=== PATIENT | male | born 1935 | race Caucasian/White ===

== ENCOUNTER 2019-09-06 15:55 | Outpatient (CLI) | payer MEDICARE, SELFPAY ==
[2019-09-06 16:49] LABS: Blood Urea Nitrogen 39 mg/dL (9-20); Calcium 8.9 mg/dL (8.4-10.2); Carbon Dioxide 30 mmol/L (22-30); Chloride 97 mmol/L (98-107); Estimated Glomerular Filt Rate 58; Glucose 93 mg/dL (75-110); Potassium 3.7 mmol/L (3.4-5.0); Sodium 133 mmol/L (137-145)
== END 2019-09-06 15:56 | disposition home or self-care (01) ==
PROVIDERS: PCP Family Medicine; Visit Provider Physician Assistant
DX: I10 Essential (primary) hypertension (principal)
CPT/HCPCS: 36415; 80048

== ENCOUNTER 2019-10-10 10:56 | Outpatient (CLI) | payer MEDICARE, SELFPAY ==
[2019-10-10 11:58] LABS: Blood Urea Nitrogen 31 mg/dL (9-20); Calcium 8.1 mg/dL (8.4-10.2); Carbon Dioxide 34 mmol/L (22-30); Chloride 104 mmol/L (98-107); Estimated Glomerular Filt Rate 58; Glucose 127 mg/dL (75-110); Sodium 139 mmol/L (137-145)
== END 2019-10-10 10:57 | disposition home or self-care (01) ==
PROVIDERS: PCP Family Medicine; Visit Provider Physician Assistant
DX: E87.1 Hypo-osmolality and hyponatremia (principal); N28.9 Disorder of kidney and ureter, unspecified
CPT/HCPCS: 36415; 80048

== ENCOUNTER 2019-10-15 16:10 | Outpatient (CLI) | payer MEDICARE, SELFPAY ==
[2019-10-15 16:44] LABS: Blood Urea Nitrogen 36 mg/dL (9-20); Calcium 8.2 mg/dL (8.4-10.2); Carbon Dioxide 34 mmol/L (22-30); Chloride 103 mmol/L (98-107); Estimated Glomerular Filt Rate 48; Glucose 92 mg/dL (75-110); Potassium 3.8 mmol/L (3.4-5.0); Sodium 136 mmol/L (137-145)
[2019-10-15 16:52] LABS: NT Pro B Type Natriuretic Pept 2640 PG/ML (5-100)
== END 2019-10-15 16:11 | disposition home or self-care (01) ==
PROVIDERS: PCP Family Medicine; Visit Provider Physician Assistant
DX: I50.9 Heart failure, unspecified (principal); I10 Essential (primary) hypertension; R60.0 Localized edema
CPT/HCPCS: 36415; 80048; 83880

== ENCOUNTER 2019-10-22 15:01 | Outpatient (CLI) | payer MEDICARE, SELFPAY ==
--- NOTE | ~2019-10-22 | US_ITS ---
EXAMINATION: US venous doppler [facility] DATE: 10/22/2019 15:50 INDICATION: Lower limb edema TECHNIQUE: Chan scale images without and with compression and Doppler images of the bilateral lower e xtremity veins were obtained. COMPARISON: 08/21/2019. FINDINGS: There is bilateral lower limb edema. The right common femoral vein, profunda femoral vein, femoral vein, popliteal vein, peroneal trunk, p osterior tibial veins, and greater saphenous vein are patent. The left common femoral vein, profunda femoral vein, femoral vein, popliteal vein, peroneal trunk, po sterior tibial veins, and greater saphenous vein are patent. IMPRESSION: 1. Patent bilateral lower extremity veins. No evidence of deep venous thrombosis. Reviewed, dictated and finalized at location A. IMPRESSION: 1. Patent bilateral lower extremity veins. No evidence of deep venous thrombosi s.
== END 2019-10-22 15:02 | disposition home or self-care (01) ==
PROVIDERS: PCP Family Medicine; Visit Provider Family Medicine
DX: R60.0 Localized edema (principal); R91.8 Other nonspecific abnormal finding of lung field
CPT/HCPCS: 93970

== ENCOUNTER 2019-11-11 07:46 | Outpatient (CLI) | payer MEDICARE, SELFPAY ==
--- NOTE | 2019-11-11 08:11 | ECHO_ITS ---
Patient Info Name: Nj Vasquez Age: 84 years : 1935 Gender: Male Ht: 65 in Wt: 160 lbs BSA: 1.84 m2 HR: 80 bpm BP: 137 / 75 mmHg Technical Quality: Fair Exam Date: 11/11/2019 8:26 AM Exam Location: [facility] Pulmonary Patient Status: Outpatient Admit Date: 11/11/2019 Staff Ordering Physician: Charles Apple DO [employer] Supervisor: Jory Schmidt RDCS Attending Provider: Charles Apple DO Referring Physician: Zechariah BURGER; Exam Type: CA echo doppler color flow Study Info Indications I10 - Essential (primary) hypertension R06.00 - Dyspnea, unspecified Complete two-dimensional, color flow and Doppler transthoracic echocardiogram is performed. Summary 1. Left ventricular chamber dimension is normal. 2. Ventricular septum is sigmoid shaped. 3. Left ventricular systolic function is normal, estimated at 60-65%. 4. The left ventricular diastolic function is grade I diastolic dysfunction. 5. E/e' 12 is mildly elevated. 6. 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 It is non-obstructive. Consider AHNNA if clinically indicated. 7. There is moderate aortic valve sclerosis. 8. There is trace aortic valve regurgitation. 9. The mitral valve has mildly calcified annulus. 10. There is mild mitral valve regurgitation. 11. No pulmonary hypertension, estimated pulmonary arterial systolic pressure is 26 mmHg. 12. The aortic root size at the sinus of Valsalva is mildly dilated at 4.4 cm. Left Ventricle E/e' 12 is mildly elevated. Ventricular septum is sigmoid shaped. Left ventricular chamber dimension is normal. Left ventricular systolic function is normal, estimated at 60-65%. The left ventricular diastolic function is grade I diastolic dysfunction. Right Ventricle Right ventricular chamber dimension is normal. Right ventricular systolic function is normal. 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 It is non-obstructive. Consider HANNA if clinically indicated. Left atrial chamber dimension is normal. Right Atria Right atrial chamber dimension is normal. Aortic Valve The aortic valve is trileaflet. There is moderate aortic valve sclerosis. There is no aortic valve stenosis. There is trace aortic valve regurgitation. Pulmonic Valve There is no pulmonic regurgitation. Mitral Valve The mitral valve has mildly calcified annulus. There is no mitral valve stenosis. There is mild mitral valve regurgitation. Tricuspid Valve There is no tricuspid valve regurgitation. No pulmonary hypertension, estimated pulmonary arterial systolic pressure is 26 mmHg. Pericardium/Pleural There is no pericardial effusion. Inferior Vena Cava Normal inferior vena cava with >50% collapse upon inspiration consistent with normal right atrial pressure, 5 mmHg. Aorta The aortic root size at the sinus of Valsalva is mildly dilated at 4.4 cm. Left Ventricular Outflow Tract Name Value Normal LVOT 2D LVOT Diameter 2.1 cm LVOT Doppler --------
[2019-11-11 10:31] LABS: Blood Urea Nitrogen 34 mg/dL (9-20); Calcium 8.1 mg/dL (8.4-10.2); Carbon Dioxide 30 mmol/L (22-30); Chloride 102 mmol/L (98-107); Estimated Glomerular Filt Rate 48; Glucose 86 mg/dL (75-110); Potassium 3.6 mmol/L (3.4-5.0); Sodium 133 mmol/L (137-145)
[2019-11-11 10:40] LABS: NT Pro B Type Natriuretic Pept 4800 PG/ML (5-100)
== END 2019-11-11 07:47 | disposition home or self-care (01) ==
PROVIDERS: Physician Assistant; PCP Family Medicine; Visit Provider Internal Medicine Cardiovascular Disease
DX: I10 Essential (primary) hypertension (principal); I50.9 Heart failure, unspecified; R06.09 Other forms of dyspnea; R60.0 Localized edema; I08.3 Combined rheumatic disorders of mitral, aortic and tricuspid valves
CPT/HCPCS: 36415; 80048; 83880; 93306

== ENCOUNTER 2019-12-13 14:20 | Outpatient (CLI) | payer MEDICARE, SELFPAY ==
[2019-12-13 15:51] LABS: NT Pro B Type Natriuretic Pept 7040 PG/ML (5-100)
== END 2019-12-13 14:21 | disposition home or self-care (01) ==
PROVIDERS: PCP Family Medicine; Visit Provider Physician Assistant
DX: I50.9 Heart failure, unspecified (principal)
CPT/HCPCS: 36415; 83880

== ENCOUNTER 2019-12-27 12:29 | Outpatient (CLI) | payer MEDICARE, SELFPAY ==
[2019-12-27 13:07] LABS: Blood Urea Nitrogen 58 mg/dL (9-20); Calcium 8.1 mg/dL (8.4-10.2); Carbon Dioxide 30 mmol/L (22-30); Chloride 101 mmol/L (98-107); Estimated Glomerular Filt Rate 48; Glucose 96 mg/dL (75-110); Magnesium 2.1 mg/dL (1.6-2.3); Sodium 134 mmol/L (137-145)
[2019-12-27 13:17] LABS: NT Pro B Type Natriuretic Pept 7340 PG/ML (5-100)
== END 2019-12-27 12:30 | disposition home or self-care (01) ==
PROVIDERS: PCP Family Medicine; Visit Provider Internal Medicine Cardiovascular Disease
DX: I51.89 Other ill-defined heart diseases (principal)
CPT/HCPCS: 36415; 80048; 83735; 83880

== ENCOUNTER 2019-12-27 16:38 | Inpatient (IN) | payer MEDICARE, SELFPAY ==
[2019-12-27] VITALS (11 sets, daily range): BP systolic 159–210; BP diastolic 67–113; PULSE 72–95; RESP 13–20; TEMP 36.1–36.8; O2SAT 97–100; BMI 21.8; BMI 23.1
--- NOTE | ~2019-12-27 | XR_ITS ---
EXAMINATION: XR chest 2V DATE: 12/27/2019 17:33 INDICATION: Swelling of the extremities TECHNIQUE: AP and lateral views of the chest are obtained. COMPARISON: 05/18/2019 FINDINGS: Airspace opacities in the left lung apex persist with slight worsening. There is an unchang ed masslike opacity in the right lung apex. There are small pleural effusions, right greater than lef t. No pneumothorax is identified. The cardiomediastinal silhouette is normal. There is moderate thora cic spondylosis. Suture anchors are noted in the right humeral head. IMPRESSION: 1. Chronic left upper lobe airspace opacity with interval worsening, consistent with superimposed pne umonia. 2. Stable right upper lobe mass which may be infectious or malignant. 3. Small pleural effusions, right greater than left. Reviewed, dictated and finalized at location A. IMPRESSION: 1. Chronic left upper lobe airspace opacity with interval worsening, consistent with superimposed pneumonia. 2. Stable right upper lobe mass which may be infectious or malignant. 3. Small pleural effusions, right greater than left.
--- NOTE | ~2019-12-27 | US_ITS ---
US venous doppler UE RT DATE: 12/28/2019 10:19 INDICATION: Right upper extremity edema TECHNIQUE: Real-time and color flow imaging imaging and Doppler analysis of the right upper extremity veins COMPARISON: None FINDINGS: Flow is demonstrated in the right internal jugular, subclavian, axillary, brachial, basilic , cephalic, radial and ulnar veins, with normal compression where applicable. IMPRESSION: Negative examination; no evidence of right upper extremity venous thrombosis Reviewed, dictated and finalized at Location A. Reviewed, dictated and finalized at location A. IMPRESSION: Negative examination; no evidence of right upper extremity venous t hrombosis
--- NOTE | 2019-12-27 16:44 | ECG_ITS ---
Measurements Intervals [place] Rate: 90 P: 79 [place]: 141 QRS: -55 QRSD: 149 T: 65 QT: 364 QTc: 447 Interpretive Statements SINUS RHYTHM FREQUENT ATRIAL PREMATURE COMPLEXES RIGHT BUNDLE BRANCH BLOCK LEFT ANTERIOR FASCICULAR BLOCK BASELINE ARTIFACT- I, II, III, AVR, AVL, AVF ABNORMAL ECG Electronically Signed On 12-27-2019 17:30:34 CDT by Charles Apple D.O.
[2019-12-27 17:09] LABS: Basophils Percent Auto 0.4 % (0.2-1.2); Eosinophils Percent Auto 0.3 % (0-4.4); Hematocrit 31.1 % (42.0-52.0); Hemoglobin 9.9 g/dL (14.0-18.0); Immature Granulocyte Absolute 0.07 K/mm3 (0.00-0.031); Immature Granulocyte Percent A 0.6 % (0-0.5); Lymphocytes Absolute Auto 1.23 K/mm3 (0.9-3.2); Lymphocytes Percent Auto 11.3 % (18.3-44.2); Mean Corpuscular HGB Conc 31.8 g/dl (32-36); Mean Corpuscular Hemoglobin 27.7 pg (26-34); Mean Corpuscular Volume 86.9 fl (80-100); Mean Platelet Volume 9.9 fl (7.4-10.4); Monocytes Absolute Auto 0.7 K/mm3 (0.1-0.6); Monocytes Percent Auto 6.1 % (2.6-8.5); Neutrophils Absolute Auto 8.9 K/mm3 (1.3-6.7); Neutrophils Percent Auto 81.3 % (45.5-73.1); Platelet Count Result 242 k/mm3 (150-375); Red Blood Count 3.58 M/mm3 (4.6-6.20); Red Cell Distribution Width 15.9 % (11.5-14.5); White Blood Count 10.9 K/mm3 (4.5-10.0)
[2019-12-27 17:19] LABS: INR 0.9; Prothrombin Time 11.8 Seconds (11.1-14.7)
[2019-12-27 17:20] LABS: Partial Thromboplastin Time 22.3 SECONDS (22.3-36.8)
[2019-12-27 17:21] LABS: Blood Urea Nitrogen 60 mg/dL (9-20); Carbon Dioxide 29 mmol/L (22-30); Chloride 104 mmol/L (98-107); Estimated CRCL calculation 33 ml/min; Estimated Glomerular Filt Rate 48; Glucose 125 mg/dL (75-110); Potassium 3.8 mmol/L (3.4-5.0); Sodium 135 mmol/L (137-145)
[2019-12-27 17:38] LABS: NT Pro B Type Natriuretic Pept 6750 PG/ML (5-100); Troponin I 0.047 ng/mL (0.000-0.034)
--- NOTE | 2019-12-27 17:39 | ED.GENADULT ---
HPI - General Adult General Chief complaint: Unspecified Stated complaint: seeping edema Time Seen by Provider: 12/27/19 17:26 Source: RN notes reviewed History of Present Illness HPI narrative: Patient presents emergency department from home for lower extremity edema. History is per patient and family who noticed increasing edema over the past month worse in the past several days with weeping edema the bilateral lower extremities. Per the family patient is been seen Dr. Issa as well as Dr. napoles for the symptoms and had outpatient labs done today. Patient does have a history of lung masses for which she has elected not to have treatment at this time. The patient denies any fevers or chills chest pain shortness of breath abdominal pain or any other symptom patient has been taking Lasix as prescribed Related Data Home Medications Medication Instructions Recorded Confirmed lisinopril 20 mg tablet 20 mg PO DAILY 12/13/19 12/17/19 Allergies Allergy/AdvReac Type Severity Reaction Status Date / Time No Known Allergies Allergy Verified 12/27/19 17:04 Review of Systems Review of Systems: Narrative: Gen.: Denies fevers or chills Eyes: Denies eye pain or visual change ENT: Denies congestion Respiratory: Denies shortness of breath or cough ports history of lung mass CV: Denies chest pain or palpitations reports lower extremity and right upper extremity edema GI: Denies abdominal pain nausea, emesis or diarrhea Musculoskeletal: Denies back pain or muscle pain Neuro: Denies numbness, tingling, weakness or focal weakness Skin: Denies rash Except as documented, all other systems reviewed and negative FORMERLY [facility] Past Medical History Medical History Anxiety Bilateral lower extremity edema Chronic shortness of breath COPD (chronic obstructive pulmonary disease) COPD (chronic obstructive pulmonary disease) Essential hypertension IFG (impaired fasting glucose) Lung mass Osteoarthritis Thoracic aortic aneurysm without rupture Social History Social History Smoking status: Current some day smoker Tobacco type: cigarettes Second hand tobacco smoke exposure: No Alcohol intake: never Substance use: never Substance use type: does not use Gender identity (if verbalized by the patient): Male Exam Narrative: Exam Narrative: APPEARANCE: No acute distress, nontoxic, resting in bed EYES: EOMI HEENT: Normocephalic, atraumatic, OMM RESPIRATORY: No respiratory distress Clear to auscultation bilaterally with no rhonchi wheezing or rales. CARDIOVASCULAR: Regular rate and rhythm without murmurs rubs or gallops. ABDOMINAL: Soft, nontender, nondistended, no rebound or guarding MUSCULOSKELETAl: Moves all extremities. No clubbing, cyanosis 4+ edema the bilateral lower extremities and 3+ edema the right upper extremity 2+ edema in the left upper extremity, bilateral radial pulse 2+ bilateral dorsalis pedis pulse 2+ NEURO: Awake and alert. Following commands, speech normal, no focal deficits SKIN:: Warm, dry. No rashes lesions or abrasions PSYCHIATRIC: Normal affect/mood, Course Course Emergency Course: Reviewed chest x-ray patient has known history of lung mass consistent with lung cancer and not elected treatment he denies any shortness of breath fever cough doubt pneumonia at this time and suspect worsening mass Discussed with Dr. kirk presentation work-up. Request patient receive Lasix 40 mg x 1 now he agrees with consult and states he will write further Lasix orders after evaluation by himself Discussed with NIKOLAI Osorio for Dr Alvarez presentation work-up. Agrees with admission at this time Discussed with patient and family results of workup and diagnosis. Discussed need for admission. Patient and family understand and agree to current treatment plan Vital Signs Vital signs: Vital Signs Temperature 98.3 F 12/27/19 16:41 Pul
[2019-12-27] MEDS: FUROSEMIDE INJ 40 MG/4 ML VIAL IV PUSH (18:37)
[2019-12-27] MEDS: ASPIRIN 81 MG CHEWABLE TABLET 324 MG PO (18:38)
--- NOTE | 2019-12-27 20:55 | ADMIMU ---
This patient, Nj Vasquez, was admitted to IMU status, and placed in IMU Room 204-01. Patient/family oriented to hospital policies and general routines including ID bracelet, bed and alarms, visiting hours, pain management, procedures, bathroom and other care routines, personal items, smoking policy, room service/diet, and visiting hours. Valuables list has been completed. Information on how to activate the Rapid Response Team has been discussed. Patient/Family are encouraged to report perceived risks to care and to ask questions if they do not understand what they are told or what they should do.
--- NOTE | 2019-12-27 21:44 | PM.IMHP ---
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 The patient is known to live at home with his daughter and he was brought to the hospital secondary to worsening right upper extremity swelling and facial edema. The patient has been seeing both Dr. Issa and Dr. Mar recently. Cardiology, Dr. Mar insisted that the patient be admitted to our hospital [facility] for IV diuretic therapy. The patient was treated with IV lasix and admitted to IMU tonight. The patient is only oriented to himself tonight and complains of worsening right upper extremity swelling. He denies any fever, chills, cough, sore throat, headache, chest pain, abdominal pain, dysuria, nausea, vomiting, or rectal bleeding. I spoke with his daughter on the phone [facility] and she related that she was told that her father is likely not a good candidate for treatment of his lung tumors. She is interested in learning more about possible options to treat her father's SVC syndrome. She reports that he has had more frequent falls recently, including falling just 2 days ago. Review of Systems Review of Systems: All systems reviewed & are unremarkable except as noted in HPI and below PMFSH Past Medical History Medical History Anxiety Bilateral lower extremity edema Chronic shortness of breath COPD (chronic obstructive pulmonary disease) COPD (chronic obstructive pulmonary disease) Essential hypertension IFG (impaired fasting glucose) Lung mass Osteoarthritis Thoracic aortic aneurysm without rupture Surgical History Surgical History History of orthopedic surgery Family History Family History Mother Family history of malignant neoplasm Hypertension Father Family history of coronary artery disease Acute myocardial infarction Cerebrovascular accident Congestive heart failure Hypertension Sibling Acute myocardial infarction History of blood clots Cerebrovascular accident Congestive heart failure Hypertension Other Family history of arthritis Social History Social History Smoking status: Heavy tobacco smoker Tobacco type: cigarettes Second hand tobacco smoke exposure: Yes Additional smoking assessment comments: smoking decreased because he cant breathe Alcohol intake: former Substance use: never Substance use type: does not use Gender identity (if verbalized by the patient): Male Spiritual care concerns: No Meds Home Medications and Allergies Home Medications Medication Instructions Recorded Confirmed Type levalbuterol HCl 0.63 mg/3 mL 0.63 mg INHALATION Q8H #36 ml 11/11/19 12/27/19 Rx solution for nebulization levalbuterol tartrate 45 2 inh INHALATION Q6H #15 gm 11/11/19 12/27/19 Rx mcg/actuation aerosol inhaler alprazolam 0.5 mg tablet 0.5 mg PO QID PRN #120 tablet 12/04/19 12/27/19 Rx fluticasone fur. 100 mcg-umeclid 1 inhalation INHALATION Q24H 30 12/13/19 12/27/19 Rx 62.5 mcg-vilant 25 mcg Days #60 each inhalat.powder lisinopril 20 mg tablet 20 mg PO DAILY 12/13/19 12/27/19 History furosemide 40 mg tablet 80 mg PO DAILY #90 tablet 12/17/19 12/27/19 Rx potassium chloride 20 mEq 20 meq PO DAILY #90 tablet 12/17/19 12/27/19 Rx tablet,extended release spironolactone 25 mg tablet 25 mg PO DAILY #90 tablet 12/17/19 12/27/19 Rx tramadol 50 mg tablet 50 mg PO Q6H PRN #90 tablet 12/25/19 12/27/19 Rx Allergies Allergy/AdvReac Type Severity Reaction Status Date / Time No Known Allergies Allergy Verified 12/27/19 17:04 Vital Signs Vital Signs - 24 hr 12/27/19 16:41 12/27/19 16:53 12/27/19 18:38 Temperatur
[2019-12-27] MEDS: hydrALAZINE HCL 20 MG/ML VIAL 10 MG IV PUSH (22:31)
[2019-12-28] VITALS (22 sets, daily range): BP systolic 137–169; BP diastolic 77–93; PULSE 68–105; RESP 18–24; TEMP 35.9–36.4; O2SAT 97–100
[2019-12-28 01:18] LABS: Troponin I 0.051 ng/mL (0.000-0.034)
[2019-12-28 04:39] LABS: Basophils Absolute Auto 0.1 K/mm3 (0.0-0.1); Basophils Percent Auto 0.4 % (0.2-1.2); Eosinophils Percent Auto 0.2 % (0-4.4); Hematocrit 31.1 % (42.0-52.0); Immature Granulocyte Absolute 0.05 K/mm3 (0.00-0.031); Immature Granulocyte Percent A 0.4 % (0-0.5); Lymphocytes Absolute Auto 1.29 K/mm3 (0.9-3.2); Lymphocytes Percent Auto 10.8 % (18.3-44.2); Mean Corpuscular HGB Conc 32.2 g/dl (32-36); Mean Corpuscular Hemoglobin 27.5 pg (26-34); Mean Corpuscular Volume 85.7 fl (80-100); Mean Platelet Volume 9.9 fl (7.4-10.4); Monocytes Absolute Auto 0.7 K/mm3 (0.1-0.6); Neutrophils Absolute Auto 9.9 K/mm3 (1.3-6.7); Neutrophils Percent Auto 82.2 % (45.5-73.1); Platelet Count Result 250 k/mm3 (150-375); Red Blood Count 3.63 M/mm3 (4.6-6.20); Red Cell Distribution Width 15.9 % (11.5-14.5)
[2019-12-28 04:52] LABS: Blood Urea Nitrogen 56 mg/dL (9-20); Calcium 8.4 mg/dL (8.4-10.2); Carbon Dioxide 31 mmol/L (22-30); Chloride 103 mmol/L (98-107); Estimated CRCL calculation 30 ml/min; Estimated Glomerular Filt Rate 44; Glucose 92 mg/dL (75-110); Potassium 3.6 mmol/L (3.4-5.0); Sodium 134 mmol/L (137-145)
[2019-12-28 05:18] LABS: Troponin I 0.049 ng/mL (0.000-0.034)
[2019-12-28] MEDS: LEVALBUTEROL NEB 1.25 MG/3 ML 0.63 MG INHALATION ×2 (08:22→13:30)
[2019-12-28] MEDS: FUROSEMIDE INJ 40 MG/4 ML VIAL IV PUSH ×2 (08:35→17:28)
--- NOTE | 2019-12-28 08:53 | PM.CNCAR ---
Assessment and Plan Assessment and plan (1) SVC syndrome: Code(s): I87.1 - Compression of vein Status: Acute Assessment and Plan: Obtain venous duplex of RUE to make sure there is no thrombus. Discussed that it could be related to SVC syndrome from lung mass and he may need treatment for that. His daughter had told me she did not think he was strong enough for treatment. (2) Elevated troponin: Code(s): R79.89 - Other specified abnormal findings of blood chemistry Status: Acute Assessment and Plan: Remained flat and mild at .047 to .051 and trending down. Doubt ACS. Probably related to fluid overload and diastolic heart failure. (3) Diastolic dysfunction: Code(s): I51.89 - Other ill-defined heart diseases Status: Acute Assessment and Plan: Increased Spironolactone 50 mg daily and continue Lasix 40 mg IV BID. Monitor electrolytes. NTproBNP improved to 6,750 from 7,300. (4) Smoking: Code(s): F17.200 - Nicotine dependence, unspecified, uncomplicated Status: Acute Assessment and Plan: Counseled regarding smoking cessation. (5) CHOU (dyspnea on exertion): Code(s): R06.09 - Other forms of dyspnea Status: Acute (6) Lung mass: Code(s): R91.8 - Other nonspecific abnormal finding of lung field Status: Acute (7) Bilateral lower extremity edema: Code(s): R60.0 - Localized edema Status: Acute (8) Thoracic aortic aneurysm without rupture: Code(s): I71.2 - Thoracic aortic aneurysm, without rupture Status: Acute (9) Essential hypertension: Code(s): I10 - Essential (primary) hypertension Status: Chronic (10) COPD (chronic obstructive pulmonary disease): Qualifiers: COPD type: unspecified COPD Qualified Code(s): J44.9 - Chronic obstructive pulmonary disease, unspecified Code(s): J44.9 - Chronic obstructive pulmonary disease, unspecified Status: Chronic (11) PAT (paroxysmal atrial tachycardia): Code(s): I47.1 - Supraventricular tachycardia Status: Acute Assessment and Plan: Start Metoprolol Tartate 25 mg BID to suppress PAC's and decrease episodes of PAT. History of Present Illness History of Present Illness Consult date/time: 12/28/19 08:53 Reason for consult: Edema 84 yr old man who is my regular cardiology patient who has a history of COPD, smoking, hypertension, thoracic aortic aneurysm, CKD stage III, lung masses who presented yesteday to ER due to worsening edema of RUE that started to weep. He also has intermittent facial edema and some mild woody edema of both legs. Currently his right hand has no edema which has resolved compared to in the office when it was severe. He still has edema of RUE. Reports smoking 1 ppd. He is chronically limited at walking minimal distance due to CHOU. Denies chest pain, orthopnea, PND, palpitations, dizziness. On telemetry he gallego short runs of atrial tachycardia at about 120-130 bpm. Cardiovascular studies: 11/11/19 Echo: EF 60-65%, grade I diastolic dysfunction (E/e' 12), 1.6 cm x 1.1 cm circumferential mass attached to superior left atrial wall s/o atrial myxoma that is non-obstructive, trace AI, mild MR, Ao root 4.4 cm. 11/01/19 EKG: Sinus rhythm, RBBB, LAFB. 05/18/19 EKG: Sinus rhythm, RBBB, LAFB. 10/22/19 Venous duplex: No DVT of both legs. 08/21/19 CTA chest: No pulm embolism. Enlarging fluid filled cavitary mass 5.6 x4.2 cmin right apex of lung, likely infectious but need to r/o malignancy. Consider CT guided biopsy. Pulmonary nodules. 4.2 cm ascending aortic aneurysm. Reason For Visit: CHF, Elevated Troponin Review of Systems Constitutional: Constitutional: Reports as per HPI and Denies chills Cardiovascular: Cardiovascular: Reports as per HPI, Denies chest pain, Reports leg edema and Denies lightheadedness Respiratory: Respiratory: Reports as per HPI and Reports dyspnea on exertion Gastrointestinal:
[2019-12-28] MEDS: METOPROLOL TARTRATE 25 MG TABLET PO ×2 (10:29→20:21)
[2019-12-28] MEDS: TRAMADOL HCL 50 MG TABLET PO ×2 (10:30→17:27)
[2019-12-28] MEDS: SPIRONOLACTONE 50 MG TABLET PO (10:30)
[2019-12-28] MEDS: lisinopriL 20 MG TABLET PO (10:31)
[2019-12-28] MEDS: ALPRAZOLAM 0.5 MG TABLET PO ×2 (14:27→20:21)
[2019-12-28] MEDS: ACETAMINOPHEN 325 MG TABLET 650 MG PO (14:28)
--- NOTE | 2019-12-28 15:11 | PM.IMPN ---
Progress Note: A&P Assessment and Plan (1) SVC syndrome: Code(s): I87.1 - Compression of vein Status: Acute Assessment and Plan: Venous Doppler today showed no DVT.. Only treatment would be radiation doubt that oncologist would proceed with such without tissue diagnosis. Continue to treat symptomatically at present time possible and steroids (2) Lung mass: Code(s): R91.8 - Other nonspecific abnormal finding of lung field Status: Acute Assessment and Plan: Apparently no tissue diagnosis is ever been made. Given his age, dementia, and performance status he is not a candidate for any treatment (3) Elevated troponin: Code(s): R79.89 - Other specified abnormal findings of blood chemistry Status: Acute Assessment and Plan: . No chest pain tonight. trended troponin. Are flat and low suggestive of no acute ischemic event (4) Chronic anemia: Code(s): D64.9 - Anemia, unspecified Status: Chronic Assessment and Plan: Likely secondary to anemia of chronic disease. Monitor H/H. (5) Essential hypertension: Code(s): I10 - Essential (primary) hypertension Status: Chronic Assessment and Plan: elevated. Monitor blood pressure. Continue home meds. PRN hydralazine w/ parameters. (6) COPD (chronic obstructive pulmonary disease): Qualifiers: COPD type: unspecified COPD Qualified Code(s): J44.9 - Chronic obstructive pulmonary disease, unspecified Code(s): J44.9 - Chronic obstructive pulmonary disease, unspecified Status: Chronic Assessment and Plan: Continue bronchodilators. (7) Chronic renal failure, stage 3 (moderate): Code(s): N18.3 - Chronic kidney disease, stage 3 (moderate) Status: Acute Assessment and Plan: Creatinine has been elevated to 1.4 the past 2 months. Probably his new norm. Larger while here (8) DVT prophylaxis: Code(s): Z29.9 - Encounter for prophylactic measures, unspecified Status: Acute Assessment and Plan: No thrombus seen by ultrasound but high risk given his tumor and a sedentary lifestyle slow DVT prophylaxis with Lovenox while here Subjective Date/time seen: 12/28/19 15:11 Interval history: 84-year-old white male with known left upper no mass admitted with his increasing swelling and pain in his right arm.. Dementia and COPD and further treatment evaluation of his left upper lobe mass has not been entertained. Exam Narrative: Exam Narrative: Blood pressure 160/86 pulse 68 regular saturating 98% on room air afebrile Lungs prolonged expiratory phase distant breath sounds but otherwise clear CV regular rate rhythm no murmurs Abdomen is soft nontender Extremities without edema distal pulses 2+ Neuro alert cooperative no focal deficits Objective Data Vital Signs Vital Signs: Vital Signs - 24 hr 12/27/19 16:41 12/27/19 16:53 12/27/19 18:38 Temperature 36.8 C Pulse Rate 90 74 Respiratory Rate 16 20 13 Blood Pressure 165/67 H 169/90 H Pulse Oximetry 100 99 100 12/27/19 20:07 12/27/19 20:15 12/27/19 21:01 Temperature 36.6 C 36.5 C Pulse Rate 77 72 88 Respiratory Rate 19 20 Blood Pressure 172/88 H 172/88 H 210/98 H Pulse Oximetry 97 97 99 12/27/19 21:02 12/27/19 21:06 12/27/19 22:00 Temperature Pulse Rate 91 78 Respiratory Rate Blood Pressure 181/88 H Pulse Oximetry 12/27/19 22:30 12/27/19 23:36 12/28/19 00:00 Temperature 36.1 C L Pulse Rate 95 90 Respiratory Rate 20 Blood Pressure 192/113 H 159/104 H Pulse Oximetry 99 12/28/19 02:00 12/28/19 03:57 12/28/19 04:00 Temperature 36.0 C L Pulse Rate 94 89 92 Respiratory Rate 18 Blood Pressure 145/81 H Pulse Oximetry 100 12/28/19 05:51 12/28/19 08:00 12/28/19 08:24 Temperature 36.1 C L Pulse Rate 89 90 87 Respiratory Rate 24 H 20 Blood Pressure 137/77 Pulse Oximetry 98 12/28/19 08:58 12/28/19 10:00 12/28/19 10:29
[2019-12-28] MEDS: ENOXAPARIN 40 MG/0.4 ML SYRINGE SUB-Q (20:22)
[2019-12-29] VITALS (18 sets, daily range): BP systolic 131–137; BP diastolic 70–96; PULSE 36–95; RESP 18–22; TEMP 35.8–36.6; O2SAT 88–98
[2019-12-29] MEDS: hydrALAZINE HCL 20 MG/ML VIAL 10 MG IV PUSH (00:19)
[2019-12-29] MEDS: LEVALBUTEROL NEB 1.25 MG/3 ML 0.63 MG INHALATION ×3 (00:59→15:22)
[2019-12-29 04:43] LABS: Blood Urea Nitrogen 52 mg/dL (9-20); Calcium 8.4 mg/dL (8.4-10.2); Carbon Dioxide 29 mmol/L (22-30); Chloride 102 mmol/L (98-107); Estimated CRCL calculation 29 ml/min; Estimated Glomerular Filt Rate 41; Glucose 95 mg/dL (75-110); Potassium 3.8 mmol/L (3.4-5.0); Sodium 135 mmol/L (137-145)
[2019-12-29] MEDS: TRAMADOL HCL 50 MG TABLET PO ×2 (05:08→10:40)
[2019-12-29] MEDS: ALPRAZOLAM 0.5 MG TABLET PO ×2 (05:08→10:40)
[2019-12-29] MEDS: lisinopriL 20 MG TABLET PO (08:04)
[2019-12-29] MEDS: FUROSEMIDE INJ 40 MG/4 ML VIAL IV PUSH (08:04)
[2019-12-29] MEDS: SPIRONOLACTONE 50 MG TABLET PO (08:04)
[2019-12-29] MEDS: METOPROLOL TARTRATE 25 MG TABLET PO (08:04)
--- NOTE | 2019-12-29 09:14 | PM.PNCARD ---
Progress Note: A&P Assessment and Plan (1) PAT (paroxysmal atrial tachycardia): Code(s): I47.1 - Supraventricular tachycardia Status: Acute Assessment and Plan: Started Metoprolol 12/28/19 to suppress arrhythmia. 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 Discussed that it could be related to SVC syndrome from lung mass and he may need treatment for that. His daughter had told me she did not think he was strong enough for treatment. I was told family is contemplating hospice. (3) Elevated troponin: Code(s): R79.89 - Other specified abnormal findings of blood chemistry Status: Acute Assessment and Plan: Remained flat and mild at .047 to .051 and trending down. Doubt ACS. Probably related to fluid overload and diastolic heart failure. (4) Diastolic dysfunction: Code(s): I51.89 - Other ill-defined heart diseases Status: Acute Assessment and Plan: Edema essentially resolved. Increased Spironolactone 50 mg daily and continue Lasix 40 mg IV BID. Monitor electrolytes. NTproBNP improved to 6,750 from 7,300. Will need to be on at least Furosemide 40 mg BID. (5) Smoking: Code(s): F17.200 - Nicotine dependence, unspecified, uncomplicated Status: Acute Assessment and Plan: Counseled regarding smoking cessation. (6) Thoracic aortic aneurysm without rupture: Code(s): I71.2 - Thoracic aortic aneurysm, without rupture Status: Acute (7) Essential hypertension: Code(s): I10 - Essential (primary) hypertension Status: Chronic Assessment and Plan: Stable. (8) COPD (chronic obstructive pulmonary disease): Qualifiers: COPD type: unspecified COPD Qualified Code(s): J44.9 - Chronic obstructive pulmonary disease, unspecified Code(s): J44.9 - Chronic obstructive pulmonary disease, unspecified Status: Chronic Subjective Date/time seen: 12/29/19 09:14 Patient was seeing people in his room who were not there. He is not oriented at this moment. Denies any problems of chest pain, sob or discomfort. Right arm swelling resolved. Exam Const: General: comfortable and no acute distress Other: Confused. Neck: Neck: no JVD Carotids: no bruits Resp: Auscultation: no crackles, no rales, no rhonchi, no wheezes and diminished lung sounds Cardio: Rate: regular rate Rhythm: regular rhythm Heart sounds: no murmurs GI: Inspection: non-distended Neuro: Speech: normal speech Extrem: Right lower extremity: no edema Left lower extremity: no edema Other: Right arm edema resolved. Objective Data Vital Signs Vital Signs: Vital Signs - 24 hr 12/28/19 10:00 12/28/19 10:29 12/28/19 11:52 Temperature 96.6 F L Pulse Rate 97 89 68 Respiratory Rate 22 H Blood Pressure 160/86 H Pulse Oximetry 98 12/28/19 12:00 12/28/19 13:32 12/28/19 13:39 Temperature Pulse Rate 68 82 82 Respiratory Rate 20 20 Blood Pressure Pulse Oximetry 12/28/19 14:00 12/28/19 16:00 12/28/19 18:00 Temperature 96.7 F L Pulse Rate 83 84 79 Respiratory Rate 20 Blood Pressure 169/77 H Pulse Oximetry 98 12/28/19 19:35 12/28/19 20:00 12/28/19 20:21 Temperature 96.9 F L Pulse Rate 91 91 94 Respiratory Rate 22 H Blood Pressure 138/81 Pulse Oximetry 97 12/28/19 22:00 12/28/19 23:43 12/29/19 00:00 Temperature 97.5 F L Pulse Rate 73 80 86 Respiratory Rate 22 H Blood Pressure 167/93 H Pulse Oximetry 98 12/29/19 00:55 12/29/19 01:05 12/29/19 01:56 Temperature Pulse Rate 87 83 93 Respiratory Rate 18 18 Blood Pressure Pulse Oximetry 12/29/19 03:51 12/29/19 04:00 12/29/19 05:54 Temperature 97 F L Pulse Rate 88 95 87 Respiratory Rate 20 20 Blood Pressure 137/70 Pulse Oximetry 98 98 12/29/19 07:55 12/29/19 08:00 12/29/19 08:01 Tem
[2019-12-29] MEDS: LORAZEPAM INJ 2 MG/ML VIAL 0.5 MG IV PUSH ×2 (11:21→17:10)
--- NOTE | 2019-12-29 16:43 | PC.NURSE ---
This patient, Nj Vasquez, was transferred to [facility] on 12/29/19 at 1640. Personal belongings sent with patient. Report given to Gloria. Appropriate documentation sent with patient.
--- NOTE | 2019-12-29 16:43 | PC.NURSE ---
This patient, Nj Vasquez, was received from IMU on 12/29/19 at 1643. Personal belongings list checked and signed. Patient/family oriented to unit policies and routines
--- NOTE | 2019-12-29 16:43 | PM.IMPN ---
Progress Note: A&P Assessment and Plan (1) SVC syndrome: Code(s): I87.1 - Compression of vein Status: Acute Assessment and Plan: Venous Doppler 12/27 showed no DVT.. But edema is much improved today Only treatment would be radiation doubt that oncologist would proceed with such without tissue diagnosis. Or stenting of compressive vessel But family does not want any form of aggressive treatment Continue to treat symptomatically at present time ,possible and steroids if needed. Discussed at length with daughter today and will discuss with hospice. (2) Lung mass: Code(s): R91.8 - Other nonspecific abnormal finding of lung field Status: Acute Assessment and Plan: no tissue diagnosis is ever been made. Given his age, dementia, and performance status he is not a candidate for any treatment Daughter agrees and they will meet with hospice (3) Elevated troponin: Code(s): R79.89 - Other specified abnormal findings of blood chemistry Status: Acute Assessment and Plan: . No chest pain tonight. trended troponin. Are flat and low suggestive of no acute ischemic event (4) Chronic anemia: Code(s): D64.9 - Anemia, unspecified Status: Chronic Assessment and Plan: Likely secondary to anemia of chronic disease. Monitor H/H. (5) Essential hypertension: Code(s): I10 - Essential (primary) hypertension Status: Chronic Assessment and Plan: elevated. Monitor blood pressure. Continue home meds. PRN hydralazine w/ parameters. (6) COPD (chronic obstructive pulmonary disease): Qualifiers: COPD type: unspecified COPD Qualified Code(s): J44.9 - Chronic obstructive pulmonary disease, unspecified Code(s): J44.9 - Chronic obstructive pulmonary disease, unspecified Status: Chronic Assessment and Plan: Continue bronchodilators. (7) Chronic renal failure, stage 3 (moderate): Code(s): N18.3 - Chronic kidney disease, stage 3 (moderate) Status: Acute Assessment and Plan: Creatinine has been elevated to 1.4 the past 2 months. Probably his new norm. Larger while here No for the lab test if decides to proceed with hospice (8) DVT prophylaxis: Code(s): Z29.9 - Encounter for prophylactic measures, unspecified Status: Acute Assessment and Plan: No thrombus seen by ultrasound but high risk given his tumor and a sedentary lifestyle so DVT prophylaxis with Lovenox while here Subjective Date/time seen: 12/29/19 16:44 Interval history: Date of visit 12/28. 84-year-old white male with known left upper lobe mass admitted with his increasing swelling and pain in his right arm.. Dementia and COPD and further treatment evaluation of his left upper lobe mass has not been entertained. Today edema is down and he is more agitated Exam Narrative: Exam Narrative: Blood pressure 130/92 pulse 72 regular saturating 98% on room air afebrile Lungs prolonged expiratory phase distant breath sounds but otherwise clear CV regular rate rhythm no murmurs Abdomen is soft nontender Extremities without edema today including upper extremities, distal pulses 2+ Neuro alert no focal deficits but confused and agitated Objective Data Vital Signs Vital Signs: Vital Signs - 24 hr 12/28/19 18:00 12/28/19 19:35 12/28/19 20:00 Temperature 36.1 C L Pulse Rate 79 91 91 Respiratory Rate 22 H Blood Pressure 138/81 Pulse Oximetry 97 12/28/19 20:21 12/28/19 22:00 12/28/19 23:43 Temperature 36.4 C L Pulse Rate 94 73 80 Respiratory Rate 22 H Blood Pressure 167/93 H Pulse Oximetry 98 12/29/19 00:00 12/29/19 00:55 12/29/19 01:05 Temperature Pulse Rate 86 87 83 Respiratory Rate 18 18 Blood Pressure Pulse Oximetry 12/29/19 01:56 12/29/19 03:51 12/29/19 04:00 Temperature 36.1 C L Pulse Rate 93 88 95 Respiratory Rate 20 20 Blood Pressure 137/70 Pulse Oximetry 98 98 12/29/19
[2019-12-29] MEDS: ENOXAPARIN 40 MG/0.4 ML SYRINGE SUB-Q (20:49)
[2019-12-30 00:58] VITALS: PULSE 79; RESP 18
[2019-12-30] MEDS: LEVALBUTEROL NEB 1.25 MG/3 ML 0.63 MG INHALATION ×2 (00:58→09:54)
[2019-12-30 04:30] VITALS: BP 106/86; PULSE 97; RESP 20; TEMP 37; O2SAT 96
[2019-12-30] MEDS: LORAZEPAM INJ 2 MG/ML VIAL 0.5 MG IV PUSH (05:25)
--- NOTE | 2019-12-30 08:02 | PM.PNCARD ---
Progress Note: A&P Assessment and Plan (1) PAT (paroxysmal atrial tachycardia): Code(s): I47.1 - Supraventricular tachycardia Status: Acute Assessment and Plan: Started Metoprolol 12/28/19 to suppress arrhythmia. 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 Discussed that it could be related to SVC syndrome from lung mass and he may need treatment for that. His daughter had told me she did not think he was strong enough for treatment. I was told family is contemplating hospice. (3) Elevated troponin: Code(s): R79.89 - Other specified abnormal findings of blood chemistry Status: Acute Assessment and Plan: Remained flat and mild at .047 to .051 and trending down. Doubt ACS. Probably related to fluid overload and diastolic heart failure. (4) Diastolic dysfunction: Code(s): I51.89 - Other ill-defined heart diseases Status: Acute Assessment and Plan: Edema essentially resolved. Increased Spironolactone 50 mg daily and continue Lasix 40 mg PO BID. Monitor electrolytes. NTproBNP improved to 6,750 from 7,300. (5) Smoking: Code(s): F17.200 - Nicotine dependence, unspecified, uncomplicated Status: Acute Assessment and Plan: Counseled regarding smoking cessation. (6) Thoracic aortic aneurysm without rupture: Code(s): I71.2 - Thoracic aortic aneurysm, without rupture Status: Acute (7) Essential hypertension: Code(s): I10 - Essential (primary) hypertension Status: Chronic Assessment and Plan: Stable. (8) COPD (chronic obstructive pulmonary disease): Qualifiers: COPD type: unspecified COPD Qualified Code(s): J44.9 - Chronic obstructive pulmonary disease, unspecified Code(s): J44.9 - Chronic obstructive pulmonary disease, unspecified Status: Chronic Subjective Date/time seen: 12/30/19 08:02 Denies chest pain or sob. He states nothing is bother him. Exam Const: General: comfortable and no acute distress Other: Confused. Neck: Neck: no JVD Carotids: no bruits Resp: Auscultation: no crackles, no rales, no rhonchi, no wheezes and diminished lung sounds Cardio: Rate: regular rate Rhythm: regular rhythm Heart sounds: no murmurs GI: Inspection: non-distended Neuro: Speech: normal speech Extrem: Right lower extremity: no edema Left lower extremity: no edema Other: Right arm edema resolved. Objective Data Vital Signs Vital Signs: Vital Signs - 24 hr 12/29/19 08:04 12/29/19 10:00 12/29/19 12:00 Temperature Pulse Rate 82 86 69 Respiratory Rate Blood Pressure Pulse Oximetry 12/29/19 14:00 12/29/19 15:22 12/29/19 15:31 Temperature Pulse Rate 73 78 76 Respiratory Rate 18 18 Blood Pressure Pulse Oximetry 12/29/19 20:28 12/29/19 20:38 12/30/19 00:58 Temperature 97.9 F Pulse Rate 36 L 85 79 Respiratory Rate 22 H 18 Blood Pressure 134/96 H Pulse Oximetry 88 L 93 12/30/19 04:30 Temperature 98.6 F Pulse Rate 97 Respiratory Rate 20 Blood Pressure 106/86 Pulse Oximetry 96 Intake/Output Intake/Output: Intake & Output 12/27/19 12/28/19 12/29/19 12/30/19 23:59 23:59 23:59 23:59 Intake Total 870 350 500 Output Total 275 1850 750 150 Balance -275 -980 -400 350 Meds/Results Medications: Active Medications Generic Name Dose Route Start Last Admin Trade Name Freq PRN Reason Stop Dose Admin Acetaminophen 650 mg 12/28/19 12:38 12/28/19 14:28 Tylenol Tablet PO 650 mg Q4H PRN Administration Mild Pain (1-3) or Fever Alprazolam 0.5 mg 12/28/19 02:32 12/29/19 05:08 Xanax PO 0.5 mg QID PRN Administration anxiety Enoxaparin Sodium 40 mg 12/28/19 21:00 12/29/19 20:49 Lovenox SUB-Q 40 mg HS HODA Administration Furosemide 80 mg 12/30/19 09:00 Lasix Tablet PO DA
[2019-12-30 09:15] VITALS: BP 149/84
[2019-12-30 09:17] VITALS: PULSE 89
[2019-12-30] MEDS: FUROSEMIDE 80 MG TABLET PO (09:17)
[2019-12-30] MEDS: METOPROLOL TARTRATE 25 MG TABLET PO (09:17)
[2019-12-30] MEDS: lisinopriL 20 MG TABLET PO (09:17)
[2019-12-30] MEDS: SPIRONOLACTONE 50 MG TABLET PO (09:17)
[2019-12-30 09:56] VITALS: PULSE 70; RESP 20
[2019-12-30 10:03] VITALS: PULSE 88; RESP 20
--- NOTE | 2019-12-30 16:57 | PM.DS ---
DS: Admitting Diagnosis Admitting Diagnosis Admitting Diagnosis: Compression of vein DS: Discharge Diagnosis Discharge Diagnosis (1) SVC syndrome: Code(s): I87.1 - Compression of vein Status: Acute Assessment and Plan: Venous Doppler 12/27 showed no DVT.. But edema is much improved at discharge which makes the diagnosis of SVC less likely. But family does not want any form of aggressive treatment Continue to treat symptomatically at present time , pain subsided also. Discussed at length with daughter and she decided to take the patient home with hospice,[facility]. (2) Lung mass: Code(s): R91.8 - Other nonspecific abnormal finding of lung field Status: Acute Assessment and Plan: no tissue diagnosis is ever been made. Given his age, dementia, and performance status he is not a candidate for any treatment Daughter agrees and they will proceed with hospice at home after discharge (3) Elevated troponin: Code(s): R79.89 - Other specified abnormal findings of blood chemistry Status: Acute Assessment and Plan: . No chest pain tonight. trended troponin. Are flat and low suggestive of no acute ischemic event (4) Chronic anemia: Code(s): D64.9 - Anemia, unspecified Status: Chronic Assessment and Plan: Likely secondary to anemia of chronic disease. Unchanged (5) Essential hypertension: Code(s): I10 - Essential (primary) hypertension Status: Chronic Assessment and Plan: elevated on admission when agitated. Continue home meds. Better at discharge and will continue his diuretics beta-rosa and [place]-inhibitor. (6) COPD (chronic obstructive pulmonary disease): Qualifiers: COPD type: unspecified COPD Qualified Code(s): J44.9 - Chronic obstructive pulmonary disease, unspecified Code(s): J44.9 - Chronic obstructive pulmonary disease, unspecified Status: Chronic Assessment and Plan: Continue bronchodilators. (7) Chronic renal failure, stage 3 (moderate): Code(s): N18.3 - Chronic kidney disease, stage 3 (moderate) Status: Acute Assessment and Plan: Creatinine has been elevated to 1.4 the past 2 months. Probably his new norm. 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 He was admitted for swelling and pain right arm P[place]e to be SVC, venous Doppler of upper extremity was negative and with IV diuresis edema subsided and pain subsided. And pulmonary vascular congestion which improved with diuresis also. Was seen in consultation by cardiology recommended continue diuresis. Discussed case at length with daughter and agreed that since he is not a candidate for any aggressive therapy given his performance status age and dementia she elected to enroll him in [facility] hospice and will start that at home. Time Spent with Patient Time attestation: Total time spent providing and/or coordinating discharge services: 35 minutes Exam Narrative: Exam Narrative: Condition on discharge Blood pressure 148/84 pulse is 70 sat 96% on room air Lungs clear CV no murmurs Abdomen is soft nontender Extremities no pitting edema and right arm edema had subsided Neuro alert cooperative this a.m. although had been agitated yesterday Discharge Plan Discharge Attending physician on discharge: Humberto Gray Consulting providers: Charles Apple Discharging Clinician: Humberto Gray Patient Disposition: Hospice - Home Activity: as tolerated Diet: regular Patient Instructions: Heart Failure (DC), Hospice Care (GEN), COPD (Chronic Obstructive Pulmonary Disease) (DC) Stand Alone Forms: General Discharge Information Follow-up/Referrals: Robby Saeed MD [Primary Care Provider] - 2 Weeks Discharge Medications: New met
== END 2019-12-30 11:39 | disposition hospice, home (50) | DRG 300 ==
LOC: ANHED 18:50 → ANHIMU 19:56 → ANH3MED 12-29 21:04 → ANHIMU 01-02 12:24
PROVIDERS: Family Medicine; Admitting Provider Family Medicine; Emergency Provider Emergency Medicine; PCP Family Medicine; Visit Provider Internal Medicine
DX: I87.1 Compression of vein (principal); I47.1 Supraventricular tachycardia; R91.8 Other nonspecific abnormal finding of lung field; R79.89 Other specified abnormal findings of blood chemistry; D64.9 Anemia, unspecified; J44.9 Chronic obstructive pulmonary disease, unspecified; F17.210 Nicotine dependence, cigarettes, uncomplicated; R60.0 Localized edema; I71.2 Thoracic aortic aneurysm, without rupture; F03.90 Unspecified dementia, unspecified severity, without behavioral disturbance, psychotic disturbance, mood disturbance, and anxiety; I12.9 Hypertensive chronic kidney disease with stage 1 through stage 4 chronic kidney disease, or unspecified chronic kidney disease; N18.3 Chronic kidney disease, stage 3 (moderate)
CPT/HCPCS: 36415; 71046; 80048; 83735; 83880; 84484; 85025; 85610; 85730; 93005; 93971; 94640; 96374; 99285; A9270; J0360; J1650; J1940; J2060